=== PATIENT | female | born 1965 | race Caucasian/White ===

== ENCOUNTER → 2020-11-27 | Outpatient (CLI) | payer BC ==
[~2020-11-27] MED LIST: DAILY VITAMIN1 EAC2 PO; HYDROCODON-ACE1 EAC4 PO; VITAMIN D21250 MCG PO
== END ==
LOC: OPSV2 08:30
DX: Z01.812 Encounter for preprocedural laboratory examination (principal); Z20.822 Contact with and (suspected) exposure to COVID-19; M65.332 Trigger finger, left middle finger

== ENCOUNTER → 2020-11-29 | Day surgery (SDC) | payer BC ==
[~2020-11-29] VITALS: Ht 157.5 cm; Wt 68.9 kg
== END | disposition home or self-care (01) ==
LOC: OR 05:55
PROVIDERS: Orthopaedic Surgery
PROC: 0LN80ZZ Release Left Hand Tendon, Open Approach (ICD-10-PCS; principal; 2020-11-29 07:30)
DX: M65.332 Trigger finger, left middle finger (principal); M19.90 Unspecified osteoarthritis, unspecified site; M47.9 Spondylosis, unspecified; G89.29 Other chronic pain; H81.09 Meniere's disease, unspecified ear; K21.9 Gastro-esophageal reflux disease without esophagitis; Z79.899 Other long term (current) drug therapy; Z88.8 Allergy status to other drugs, medicaments and biological substances
CPT/HCPCS: J0690; J1100; J1885; J2250; J2405; J2704; J3010; J7120

== ENCOUNTER → 2021-08-02 | Outpatient (CLI) | payer BC ==
[2021-08-02 11:28] LABS: HEMOGLOBIN 12.7 gm/dl (12.3-15.3); RED BLOOD COUNT 4.12 M/UL (4.00-5.10); WHITE BLOOD COUNT 6.7 K/UL (4.5-11.0)
[2021-08-02 11:57] LABS: BUN/CREATININE RATIO 23 (0-10)
[2021-08-03 07:34] LABS: COMPLEMENT C3, SERUM 136 mg/dL (82-167); COMPLEMENT C4, SERUM 24 mg/dL (12-38); RHEUMATOID ARTHRITIS FACTOR <10.0 IU/mL (<14.0)
== END ==
LOC: LAB 10:41
PROVIDERS: Internal Medicine
DX: M25.50 Pain in unspecified joint (principal); D72.819 Decreased white blood cell count, unspecified; M65.9 Synovitis and tenosynovitis, unspecified; M19.90 Unspecified osteoarthritis, unspecified site; R93.6 Abnormal findings on diagnostic imaging of limbs
CPT/HCPCS: 36415; 73130; 80053; 83520; 85025; 85652; 86140; 86160; 86200; 86431